=== PATIENT | male | born 1955 | race Caucasian/White ===

== ENCOUNTER 2024-10-03 08:43 | Outpatient (CLI) | payer BC | END 2024-10-03 08:44 | disposition home or self-care (01) | LOC: CSHSLEEP 08:43 | PROVIDERS: ATTEND Internal Medicine | DX: G47.33 Obstructive sleep apnea (adult) (pediatric) (principal); R09.89 Other specified symptoms and signs involving the circulatory and respiratory systems; G25.89 Other specified extrapyramidal and movement disorders; R06.83 Snoring | CPT/HCPCS: 95800 ==